=== PATIENT | male | born 1965 | race Caucasian/White ===

== ENCOUNTER 2020-06-20 16:48 | Outpatient (REF) | payer OTHER, SELFPAY ==
[2020-06-20 17:18] LABS: COVID-19 Test Negative (Negative)
== END 2020-06-20 16:49 | disposition home or self-care (01) ==
LOC: HO.LAB 16:48
PROVIDERS: PCP Internal Medicine; Visit Provider Internal Medicine
DX: Z20.828 Contact with and (suspected) exposure to other viral communicable diseases (principal)
CPT/HCPCS: 36415